=== PATIENT | female | born 1990 | race Caucasian/White ===

== ENCOUNTER 2020-01-06 12:08 | Inpatient (IN) | payer OTHER ==
[~2020-01-06] VITALS: Ht 157.5 cm; Wt 65.3 kg
[2020-01-06] MEDS ORDERED: PRENATAL CAPLE1 EAC1 PO (13:26)
== END 2020-01-08 12:01 | disposition home or self-care (01) | DRG 807 ==
LOC: OB/GYN 12:08 → LDR 12:08 → OB/GYN 22:20
PROVIDERS: ADMIT Obstetrics & Gynecology; ATTEND Obstetrics & Gynecology
PROC: 10E0XZZ Delivery of Products of Conception, External Approach (ICD-10-PCS; principal; 2020-01-06)
PROC: 4A0HXFZ Measurement of Products of Conception, Cardiac Rhythm, External Approach (ICD-10-PCS; 2020-01-06)
DX: O80 Encounter for full-term uncomplicated delivery (principal); Z37.0 Single live birth; Z3A.38 38 weeks gestation of pregnancy